=== PATIENT | female | born 1980 | race Caucasian/White ===

== ENCOUNTER 2021-01-02 08:56 | Outpatient (REF) | payer MEDICARE, SELFPAY | END 2021-01-02 08:57 | disposition home or self-care (01) | LOC: HO.LAB 08:56 | PROVIDERS: Visit Provider Internal Medicine | DX: Z20.822 Contact with and (suspected) exposure to COVID-19 (principal) | CPT/HCPCS: 36415; C9803; U0003; U0005 ==

== ENCOUNTER 2021-01-11 11:43 | Outpatient (REF) | payer MEDICARE, SELFPAY | END 2021-01-11 11:44 | disposition home or self-care (01) | LOC: HO.LAB 11:43 | PROVIDERS: PCP Internal Medicine; Visit Provider Internal Medicine | DX: Z20.822 Contact with and (suspected) exposure to COVID-19 (principal) | CPT/HCPCS: 36415; C9803; U0003; U0005 ==

== ENCOUNTER 2021-06-04 18:40 | Emergency (ER) | payer MEDICARE, OTHER, SELFPAY ==
--- NOTE | ~2021-06-04 | XR_ITS ---
EXAMINATION: XR CHEST CLINICAL INFORMATION: Cough. COMPARISON: None TECHNIQUE: Frontal view of the chest was obtained. FINDINGS: No significant abnormality is noted involving the heart, lungs, mediastinum, bony thorax or soft tissues. XR/XR chest 1V IMPRESSION: Unremarkable chest examination.
[2021-06-04 18:58] VITALS: BP 143/74; PULSE 100; RESP 18; TEMP 36.6; O2SAT 97; BMI 39.5
[2021-06-04 19:27] LABS: COVID-19 Test Negative (Negative); IDNOW Serial# 9DD0AD1C
--- NOTE | 2021-06-04 20:32 | ED_ITS ---
HPI - URI/Sore Throat General Chief Complaint: General Medical Stated Complaint: diff inhaling Time Seen by Provider: 06/04/21 20:29 Source: patient Mode of arrival: ambulatory Limitations: no limitations History of Present Illness HPI Narrative: Patient been congested for last 3 -4 days with dry cough and wheezing remote history of asthma has not used inhaler lately no fever no chills no nausea no vomiting diarrhea, patient has right-sided chest pain on coughing no leg swelling patient has not taken COVID-19 vaccine no other family member sick Related Data Previous Rx's Medication Instructions Recorded albuterol sulfate 2.5 mg INHALATION Q4-6H PRN #90 ml 06/04/21 albuterol sulfate [ProAir HFA] 2 puff INHALATION Q6H PRN #8.5 g 06/04/21 codeine-guaifenesin 10 ml PO Q4-6H PRN #237 ml 06/04/21 dicyclomine 20 mg PO QID PRN #30 tab 06/04/21 doxycycline hyclate 100 mg PO BID #20 cap 06/04/21 fluconazole [Diflucan] 150 mg PO ONCE #1 tab 06/04/21 omeprazole 40 mg PO DAILY #30 cap 06/04/21 Allergies Allergy/AdvReac Type Severity Reaction Status Date / Time Latex, Natural Rubber Allergy Hives Verified 06/04/21 20:34 morphine Allergy Angioedema Verified 06/04/21 20:34 Penicillins Allergy Itching Verified 06/04/21 20:34 prednisone AdvReac Swelling Verified 06/04/21 20:34 Review of Systems Review of Systems: Yes all other systems are reviewed and are negative PMFSH Past Medical History Medical History Asthma Surgical History H/O: hysterectomy History of appendectomy History of tonsillectomy Hx of cholecystectomy Social History Social History Advance Directives: No Advance Directives Information Provided: Yes Patient : No Physical Exam Vital Signs: Vital Signs: Last Vital Signs Temp 97.7 F 06/04/21 22:46 Pulse 82 06/04/21 22:46 Resp 17 06/04/21 22:46 BP 105/56 L 06/04/21 22:46 Pulse Ox 98 06/04/21 22:46 Body Mass Index 39.5 Appearance: Alert. Oriented X3. Frequent dry cough Eyes: PERRLA, No Nystagmus ENT: Pharynx normal. Oral Mucosa moist Neck: Normal inspection. Neck supple. CVS: Normal heart rate and rhythm. Pulses normal. Respiratory: No respiratory distress. Equal air entry bilateral, bilateral wheezing/rhonchi no crackles Abdomen: Soft mild epigastric tenderness no mass palpable no rebound tenderness or guarding Skin: Skin warm and dry. Normal skin color. Normal skin turgor. Extremities: No lower extremity edema. No calf tenderness Neuro: Oriented X 3. MDM - URI/Sore Throat MDM Narrative Medical decision making narrative: Patient with bronchitis with history of IBS chronic abdominal pain will discharge patient home on doxycycline cough syrup PPI patient does not want to take prednisone as she gets swelling Lab Data Attestation: I reviewed the patient's lab results. Result diagrams: 06/04/21 20:50 06/04/21 20:50 Labs: Lab Results 06/04/21 06/04/21 06/04/21 Range/Units 19:04 20:50 20:50 WBC 8.5 (4.8-10.8) X10*3/uL RBC 4.38 (4.20-5.50) X10*6/uL Hgb 12.8 (12.0-16.0) g/dl Hct 39.1 (37-47) % MCV 89.3 (80-98) fL MCH 29.2 (27.0-33.0) pg MCHC 32.7 (31.0-35.0) g/dl RDW 13.2 (11.0-16.0) % Plt Count 217 (160-400) X10*3/uL MPV 11.1 (9.4-12.3) fL Immature Gran % (Auto) 0.4 (0.0-0.4) % Neut % (Auto) 58.7 (45-73) % Lymph % (Auto) 28.8 (20-40) % [place] % (Auto) 8.4 (2-11) % Eos % (Auto) 3.1 (0-4) % Baso % (Auto) 0.6 (0-2) % Lymph # (Auto) 2.4 (1.2-4.9) X10*3/uL [place] # (Auto) 0.7 (0.1-1.2) X10*3/uL Eos # (Auto) 0.3 (0.0-0.4) X10*3/uL Baso # (Auto) 0.1 (0.0-0.2) X10*3/uL Abs Immat Gran (auto) 0.03 (0.00-0.03) X10*3/uL Absolute Neuts (auto) 5.0 (2.0-8.3) X10*3/uL Absolute Nucleated RBC 0.000 (0.0-0.012) X10*3/uL Nucleated RBC % (auto) 0.0 (0.0-0.2) /100WBC Sodium 142 (135-145) mmol/L Potassium 4.0 (3.3-5.1) mmol/L Chloride 108 (96-108) mmol/L Carbon Dioxide 27 (22-29) mmol/L Anion Gap 11 L (12-20) BUN 12 (9-16) mg/dL Creatinine 0.83 (0.5-1.4) mg/dL Estim Creat Clear Calc 111.5 Estimated GFR > 60 Random Glucose 99 (60-115) mg/dL Calcium 9.2 (8.4-10.2) mg/dL COVID-19 (VLAD) Negative (Negative) COVID-19 Clin Com See Note Discharge Plan Discharge Clinical Impression: Bronchitis, IBS (irritable colon syndrome) Patient Disposition: Home, Self-Care Instructions: Irritable Bowel Syndrome (ED), Acute Bronchitis (ED) Additional Instructions: Drink plenty of fluids Antibiotic and Medications as prescribed Prescriptions: New codeine-guaifenesin 10-100 mg/5 mL liquid 10 ml PO Q4-6H PRN (Reason: cough) Qty: 237 RF: 0 dicyclomine 20 mg tablet 20 mg PO QID PRN (Reason: abdominal pain) Qty: 30 RF: 0 doxycycline hyclate 100 mg capsule 100 mg PO BID Qty: 20 RF: 0 albuterol sulfate [ProAir HFA] 90 mcg/actuation HFA aerosol inhaler 2 puff inhalation Q6H PRN (Reason: shortness of breath or wheezing) Qty: 8.5 RF: 0 albuterol sulfate 2.5 mg /3 mL (0.083 %) solution for nebulization 2.5 mg inhalation Q4-6H PRN (Reason: shortness of breath or wheezing) Qty: 90 RF: 0 omeprazole 40 mg capsule,delayed release(DR/EC) 40 mg PO DAILY Qty: 30 RF: 0 fluconazole [Diflucan] 150 mg tablet 150 mg PO ONCE Qty: 1 RF: 0 Interventions: ED Discharge Assessment Last Done: 06/04/21 23:18 Discharge Date/Time: 06/04/21 23:22
[2021-06-04 20:36] VITALS: BP 124/72; PULSE 86; RESP 16; O2SAT 98
[2021-06-04] MEDS: Albuterol Sulfate (0.083%) 2.5 MG/3 ML VIAL.NEB 5 MG INHALE (20:44)
[2021-06-04] MEDS: Albuterol/Iprat 2.5/0.5MG 3 ML AMPUL.NEB INHALE (20:44)
[2021-06-04 20:45] VITALS: PULSE 84; O2SAT 97
[2021-06-04 20:56] LABS: MANUAL DIFF FLAG NO
[2021-06-04 20:57] LABS: Basophils Absolute Auto 0.1 X10*3/uL (0.0-0.2); Basophils Percent Auto 0.6 % (0-2); Eosinophils Absolute Auto 0.3 X10*3/uL (0.0-0.4); Eosinophils Percent Auto 3.1 % (0-4); Hematocrit 39.1 % (37-47); Hemoglobin 12.8 g/dl (12.0-16.0); Imm Gran Abs Auto 0.03 X10*3/uL (0.00-0.03); Imm Gran Pct Auto 0.4 % (0.0-0.4); Lymphocytes Absolute Auto 2.4 X10*3/uL (1.2-4.9); Lymphocytes Percent Auto 28.8 % (20-40); Mean Corpuscular HGB Conc 32.7 g/dl (31.0-35.0); Mean Corpuscular Hemoglobin 29.2 pg (27.0-33.0); Mean Corpuscular Volume 89.3 fL (80-98); Mean Platelet Volume 11.1 fL (9.4-12.3); Monocytes Absolute Auto 0.7 X10*3/uL (0.1-1.2); Monocytes Percent Auto 8.4 % (2-11); Neutrophils Percent Auto 58.7 % (45-73); Platelet Count 217 X10*3/uL (160-400); Red Blood Count 4.38 X10*6/uL (4.20-5.50); Red Cell Distribution Width 13.2 % (11.0-16.0); White Blood Count 8.5 X10*3/uL (4.8-10.8)
[2021-06-04 21:17] LABS: Anion Gap 11 (12-20); Blood Urea Nitrogen 12 mg/dL (9-16); Calcium 9.2 mg/dL (8.4-10.2); Carbon Dioxide 27 mmol/L (22-29); Chloride 108 mmol/L (96-108); Creatinine Clr Calc Pharmacy 111.5; Estimated Glomerular Filt Rate > 60; Glucose Random 99 mg/dL (60-115); Sodium 142 mmol/L (135-145)
[2021-06-04 22:26] VITALS: BP 96/61; PULSE 92; RESP 16; O2SAT 99
[2021-06-04 22:46] VITALS: BP 105/56; PULSE 82; RESP 17; TEMP 36.5; O2SAT 98
[2021-06-04] MEDS: Dicyclomine HCl 10 MG CAPSULE 20 MG PO (22:52)
[2021-06-04] MEDS: guaiFEN/Codeine SF 200/20/10ML 10 ML LIQUID PO (22:52)
== END 2021-06-04 23:22 | disposition home or self-care (01) ==
PROVIDERS: Emergency Provider Internal Medicine; PCP Internal Medicine
DX: J40 Bronchitis, not specified as acute or chronic (principal); K58.9 Irritable bowel syndrome, unspecified; J45.909 Unspecified asthma, uncomplicated; Z20.822 Contact with and (suspected) exposure to COVID-19
CPT/HCPCS: 36415; 71045; 80048; 85025; 87635; 94640; 94644; 99284

== ENCOUNTER 2021-11-23 15:11 | Emergency (ER) | payer MEDICARE, OTHER, SELFPAY ==
--- NOTE | ~2021-11-23 | XR_ITS ---
EXAMINATION: XR CHEST CLINICAL INFORMATION: Shortness of breath COMPARISON: Chest x-ray 06/04/2021 TECHNIQUE: 2 views of the chest were obtained. 4:30 PM FINDINGS: No significant abnormality is noted involving the heart, lungs, mediastinum, bony thorax or soft tissues. XR/XR chest 2V IMPRESSION: Unremarkable examination.
[2021-11-23 15:32] VITALS: BP 128/78; PULSE 89; RESP 18; TEMP 36.8; O2SAT 98; BMI 40.3
[2021-11-23 16:22] LABS: IDNOW Serial# 08D9AD1C
[2021-11-23 16:23] LABS: COVID-19 Test Positive (Negative)
[2021-11-23 19:16] VITALS: BP 114/49; PULSE 86; RESP 17; TEMP 37.3; O2SAT 96
--- NOTE | 2021-11-23 19:17 | ED.URI ---
HPI - URI/Sore Throat General Chief Complaint: Upper Respiratory Symptoms Stated Complaint: asthma diff breathing cough Time Seen by Provider: 11/23/21 19:16 Source: patient Mode of arrival: ambulatory Limitations: no limitations History of Present Illness HPI Narrative: 41-year-old female with history of asthma, obesity, GERD who presents to the ER with shortness of breath, fevers, body aches, chills, runny nose for the last 4 days. She is vaccinated for COVID-19 and not due for booster yet. She reports fever 102 last night that did go down with Motrin. She reports she is short of breath with coughing fits mostly at nighttime. She has history of asthma and has been trying to get hold of her doctor for refills of her nebulizer treatments but has been unable to contact them. She denies any chest pain. She is not dyspneic with exertion but very fatigued and weak. MD elicited complaint: fever, cough, nasal congestion and other (Body aches and weakness) Pertinent past history: asthma Onset (ago): day(s) (4) Consistency: progressively worsening Severity: moderate Description of mucous: clear Able to tolerate fluids by mouth: Yes Exacerbating factors: other (Nighttime) Relieving factors: OTC cold medicine Context: sick contacts Associated symptoms: fever, chills, myalgias, diaphoresis, headache, nasal congestion, sore throat, cough and shortness of breath Treatments prior to arrival: none Related Data Previous Rx's Medication Instructions Recorded albuterol sulfate 2.5 mg (3 mL) INHALATION Q4-6H PRN 06/04/21 #90 ml albuterol sulfate 90 mcg/actuation 2 puff INHALATION Q6H PRN #8.5 g 06/04/21 aerosol inhaler (ProAir HFA) codeine 10 mg-guaifenesin 100 mg/5 10 ml PO Q4-6H PRN #237 ml 06/04/21 mL oral liquid dicyclomine 20 mg tablet 20 mg PO QID PRN #30 tab 06/04/21 doxycycline hyclate 100 mg capsule 100 mg PO BID #20 cap 06/04/21 fluconazole 150 mg tablet 150 mg PO ONCE #1 tab 06/04/21 (Diflucan) omeprazole 40 mg capsule,delayed 40 mg PO DAILY #30 cap 06/04/21 release albuterol sulfate 0.63 mg/3 mL 0.63 mg (3 mL) INHALATION QID PRN 11/23/21 solution for nebulization #75 ml benzonatate 100 mg capsule 100 mg PO TID PRN #30 cap 11/23/21 dexamethasone 6 mg tablet 6 mg PO DAILY #5 tab 11/23/21 (Decadron) Allergies Allergy/AdvReac Type Severity Reaction Status Date / Time Latex, Natural Rubber Allergy Hives Verified 11/23/21 15:32 morphine Allergy Angioedema Verified 11/23/21 15:32 Penicillins Allergy Itching Verified 11/23/21 15:32 prednisone AdvReac Swelling Verified 11/23/21 15:32 Review of Systems Review of Systems: Constitutional: + Fever, + Chills ENT/Mouth: No sore throat, + Rhinorrhea, No Swallowing Difficulty Cardiovascular: No Chest Pain, No SOB, No Orthopnea, No Edema Respiratory: No Cough, No Sputum, No Wheezing, No dyspnea Gastrointestinal: No Nausea, No Vomiting, No Diarrhea, No abdominal Pain Musculoskeletal: No joint pain, + Myalgias Skin: No Skin Lesions, No rash Neuro: + Weakness, No Numbness, + Dizziness, + Headache Psych: + Anxiety/Panic, No Depression Heme/Lymph: No Bruising, No Lymphadenopathy PMFSH Past Medical History Medical History Asthma Surgical History H/O: hysterectomy History of appendectomy History of tonsillectomy Hx of cholecystectomy Social History Social History Advance Directives: No Advance Directives Information Provided: Yes Physical Exam Vital Signs: Vital Signs: Last Vital Signs Temp 99.1 F 11/23/21 19:16 Pulse 86 11/23/21 19:16 Resp 17 11/23/21 19:16 BP 114/49 L 11/23/21 19:16 Pulse Ox 96 11/23/21 19:16 BMI result Body Mass Index 40.3 Appearance: Alert. Oriented X3. Appears ill Eyes: Pupils equal, round and reactive to light. ENT: Pharynx normal. Neck: Normal inspection. Neck supple. CVS: Normal heart rate and rhythm. Pulses normal. Respiratory: No respiratory distress. Breath sounds normal. Dry cough with deep breaths Abdomen: Soft and nontender. +BS x4 Skin: Skin warm and dry. Normal skin color. Normal skin turgor. No rashes. Extremities: No lower extremity edema. No calf tenderness or redness Neuro: Oriented X 3. Grossly normal, nonfocal Course Course Course Narrative: 41-year-old female with a history of asthma presents to the ER with COVID symptoms. Her vital signs are normal on arrival. SpO2 96-98% on room air with no respiratory distress. She is afebrile. Chest x-ray shows no evidence of pneumonia. Given her history of asthma will start her on p.o. steroids and give her refills for her albuterol treatments. No wheezing today and no need for neb in the ER. Will also give her antitussive and referral for monoclonal antibodies given her history of asthma and obesity. She is stable for discharge home with close monitoring of her symptoms, encouraged to get an at home SpO2 monitor and return if any worsening respiratory symptoms. Stable for DC home at this time MDM - URI/Sore Throat Lab Data Labs: Lab Results 11/23/21 Range/Units 15:38 COVID-19 (VLAD) Positive A (Negative) COVID-19 Clin Com See Note Discharge Plan Discharge Clinical Impression: COVID-19 Patient Disposition: Home, Self-Care Instructions: Covid-19 Viral Syndrome and Novel Coronavirus (ED) Hey/Ath Additional Instructions: You were found to be COVID-19 POSITIVE today. Your chest x-ray and oxygen levels were normal. Rest. Drink plenty of fluids. Do not go out in public for the next 7 days. Take over the counter cold/flu medications as needed for your symptoms. Take Tylenol and/or Motrin as needed for fevers and body aches. Email the referral for monoclonal antibodies and they will call you for an appointment. Follow up with your doctor this week. If you shortness of breath worsens, if you develop difficulty breathing or any other concerning symptom come back to the ER for further evaluation. Prescriptions: New dexamethasone [Decadron] 6 mg tablet 6 mg PO DAILY Qty: 5 RF: 0 albuterol sulfate 0.63 mg/3 mL solution for nebulization 0.63 mg inhalation QID PRN (Reason: shortness of breath or wheezing) Qty: 75 RF: 0 benzonatate 100 mg capsule 100 mg PO TID PRN (Reason: cough) Qty: 30 RF: 0 No Action codeine-guaifenesin 10-100 mg/5 mL liquid 10 ml PO Q4-6H PRN (Reason: cough) Qty: 237 RF: 0 dicyclomine 20 mg tablet 20 mg PO QID PRN (Reason: abdominal pain) Qty: 30 RF: 0 doxycycline hyclate 100 mg capsule 100 mg PO BID Qty: 20 RF: 0 albuterol sulfate [ProAir HFA] 90 mcg/actuation HFA aerosol inhaler 2 puff inhalation Q6H PRN (Reason: shortness of breath or wheezing) Qty: 8.5 RF: 0 albuterol sulfate 2.5 mg /3 mL (0.083 %) solution for nebulization 2.5 mg inhalation Q4-6H PRN (Reason: shortness of breath or wheezing) Qty: 90 RF: 0 omeprazole 40 mg capsule,delayed release(DR/EC) 40 mg PO DAILY Qty: 30 RF: 0 fluconazole [Diflucan] 150 mg tablet 150 mg PO ONCE Qty: 1 RF: 0
== END 2021-11-23 19:42 | disposition home or self-care (01) ==
PROVIDERS: Emergency Provider Emergency Medicine Emergency Medical Services; PCP Internal Medicine
DX: U07.1 COVID-19 (principal); R06.02 Shortness of breath; J45.909 Unspecified asthma, uncomplicated
CPT/HCPCS: 71046; 87635; 99283; 99284

== ENCOUNTER 2023-04-14 16:41 | Emergency (ER) | payer MEDICARE, MEDICAID, SELFPAY ==
--- NOTE | ~2023-04-14 | XR_ITS ---
EXAMINATION: X-ray right ankle X-ray right foot CLINICAL INFORMATION: Pain, rule out fracture COMPARISON: None TECHNIQUE: Ankle 2 views. Foot 3 views. FINDINGS: Ankle: No visible acute fracture or dislocation. Ankle mortise is maintained. Talar dome appears intact. Fifth metatarsal base appears intact. Foot: No visible acute fracture or dislocation. Alignment is anatomic. Tarsometatarsal alignment is maintained. Anterior calcaneal process and talus appear intact. Small posterior calcaneal spur. XR/XR foot RT min 3V IMPRESSION: No radiographic evidence of acute fracture or dislocation. If there are persistent symptoms, consider follow-up x-rays in 4-7 days.
--- NOTE | ~2023-04-14 | XR_ITS ---
EXAMINATION: X-ray right ankle X-ray right foot CLINICAL INFORMATION: Pain, rule out fracture COMPARISON: None TECHNIQUE: Ankle 2 views. Foot 3 views. FINDINGS: Ankle: No visible acute fracture or dislocation. Ankle mortise is maintained. Talar dome appears intact. Fifth metatarsal base appears intact. Foot: No visible acute fracture or dislocation. Alignment is anatomic. Tarsometatarsal alignment is maintained. Anterior calcaneal process and talus appear intact. Small posterior calcaneal spur. XR/XR ankle RT min 3V IMPRESSION: No radiographic evidence of acute fracture or dislocation. If there are persistent symptoms, consider follow-up x-rays in 4-7 days.
[2023-04-14 17:13] VITALS: BP 143/79; PULSE 98; RESP 18; TEMP 37; O2SAT 96; BMI 39.9
--- NOTE | 2023-04-14 17:21 | ED.LOWEXIN ---
HPI - Extremity Injury (Lower) General Chief Complaint: Extremity Injury, Lower Stated Complaint: right foot pain Time Seen by Provider: 04/14/23 17:10 Source: patient Mode of arrival: ambulatory Limitations: no limitations History of Present Illness HPI Narrative: Patient was in the emergency department complaining of right foot pain following a fall. Patient states that she was walking up stairs carrying luggage when she turned quickly and became dizzy falling over her luggage. She does not believe she hit her head. She denies any other prodromal symptoms such as chest pain or shortness of breath. She now complains of pain only to her right medial foot. Not on blood thinners. She denies any other systemic complaints. Related Data Previous Rx's Medication Instructions Recorded albuterol sulfate 2.5 mg/3 mL 2.5 mg (3 mL) inhalation Q4-6H PRN 06/04/21 (0.083 %) solution for nebulization shortness of breath or wheezing #90 mL albuterol sulfate 90 mcg/actuation 2 puff inhalation Q6H PRN 06/04/21 aerosol inhaler (ProAir HFA) shortness of breath or wheezing #8.5 grams codeine 10 mg-guaifenesin 100 mg/5 10 ml PO Q4-6H PRN cough #237 mL 06/04/21 mL oral liquid dicyclomine 20 mg tablet 20 mg PO QID PRN abdominal pain 06/04/21 #30 tabs doxycycline hyclate 100 mg capsule 100 mg PO BID #20 caps 06/04/21 fluconazole 150 mg tablet 150 mg PO ONCE #1 tab 06/04/21 (Diflucan) omeprazole 40 mg capsule,delayed 40 mg PO DAILY #30 caps 06/04/21 release albuterol sulfate 0.63 mg/3 mL 0.63 mg (3 mL) inhalation QID PRN 11/23/21 solution for nebulization shortness of breath or wheezing #75 mL benzonatate 100 mg capsule 100 mg PO TID PRN cough #30 caps 11/23/21 dexamethasone 6 mg tablet 6 mg PO DAILY #5 tabs 11/23/21 (Decadron) Allergies Allergy/AdvReac Type Severity Reaction Status Date / Time Latex, Natural Rubber Allergy Hives Verified 04/14/23 17:18 morphine Allergy Angioedema Verified 04/14/23 17:18 Penicillins Allergy Itching Verified 04/14/23 17:18 prednisone AdvReac Swelling Verified 04/14/23 17:18 Review of Systems Review of Systems: Yes all other systems are reviewed and are negative [facility] Past Medical History Medical History Asthma Surgical History H/O: hysterectomy History of appendectomy History of tonsillectomy Hx of cholecystectomy Social History Social History Advance Directives: No Advance Directives Information Provided: No Physical Exam Vital Signs: Vital Signs: Last Vital Signs Temp 98.6 F 04/14/23 17:13 Pulse 98 04/14/23 17:13 Resp 18 04/14/23 17:13 BP 143/79 H 04/14/23 17:13 Pulse Ox 96 04/14/23 17:13 O2 Del Method Room Air 04/14/23 17:13 BMI result Body Mass Index 39.9 Patient appears sitting comfortably in the wheelchair. She is obese. Bright foot displays no edema, erythema, ecchymosis or for deformity. There is some tenderness to the medial malleolar/foot area reproduces her pain. She is neurovascularly intact in the extremity. Her ankle and foot are stable. Right knee and hip exam are normal. The pelvis is stable. Chest wall and back display no tenderness or ecchymosis. Abdomen is soft nontender. No midline cervical spine tenderness. No evidence of head trauma. Medications Administered Discontinued Medications Generic Name Dose Route Start Last Admin Trade Name Freq PRN Reason Stop Dose Admin Acetaminophen 975 mg 04/14/23 17:17 04/14/23 17:33 Acetaminophen 325 Mg Tablet PO 04/14/23 17:18 975 mg ONCE ONE Administration Ibuprofen 600 mg 04/14/23 17:17 04/14/23 17:33 Ibuprofen 600 Mg Tablet PO 04/14/23 17:18 600 mg ONCE ONE Administration Medical Decision Making Medical Decision Making MDM Narrative: 42-year-old female presenting following a mechanical fall complaining of right ankle/foot pain. No signs of other traumatic injury. She notes becoming dizzy with turning her head too quickly. Do not suspect ACS or other acute complaints no pulmonary process or intracranial process leading to this fall. Will obtain x-ray and give ibuprofen/Tylenol for pain. Differential Diagnosis Fracture, sprain, traumatic injury, ACS, stroke Independent Interpretation I performed an independent interpretation of an: Plain X-Ray Interpretation: negative xrays Radiology Impression Discussion of test interpretation with radiology: I have reviewed the radiologist's reading. Radiologist Impression: XR/XR foot RT min 3V IMPRESSION: No radiographic evidence of acute fracture or dislocation. If there are persistent symptoms, consider follow-up x-rays in 4-7 days. XR/XR ankle RT min 3V IMPRESSION: No radiographic evidence of acute fracture or dislocation. If there are persistent symptoms, consider follow-up x-rays in 4-7 days. Discharge Plan Discharge Clinical Impression: Foot sprain Patient Disposition: Home, Self-Care Instructions: Foot Sprain (ED), Walking Boot (ED) Additional Instructions: Use the walking boot and crutches as needed for support. It is now evidence of fracture. At this time this is consistent with a foot/ankle sprain. Rest, ice, and elevate. Take ibuprofen 600 mg every 6-8 hours as needed for pain. He may take Tylenol for additional pain relief. If the pain persists after 1-2 weeks he may follow-up with orthopedics for further evaluation. Return for any new or worsening symptoms. Prescriptions: No Action codeine-guaifenesin 10-100 mg/5 mL liquid 10 ml PO Q4-6H PRN (Reason: cough) Qty: 237 0RF dicyclomine 20 mg tablet 20 mg PO QID PRN (Reason: abdominal pain) Qty: 30 0RF doxycycline hyclate 100 mg capsule 100 mg PO BID Qty: 20 0RF albuterol sulfate [ProAir HFA] 90 mcg/actuation HFA aerosol inhaler 2 puff inhalation Q6H PRN (Reason: shortness of breath or wheezing) Qty: 8.5 0RF albuterol sulfate 2.5 mg /3 mL (0.083 %) solution for nebulization 2.5 mg inhalation Q4-6H PRN (Reason: shortness of breath or wheezing) Qty: 90 0RF omeprazole 40 mg capsule,delayed release(DR/EC) 40 mg PO DAILY Qty: 30 0RF fluconazole [Diflucan] 150 mg tablet 150 mg PO ONCE Qty: 1 0RF dexamethasone [Decadron] 6 mg tablet 6 mg PO DAILY Qty: 5 0RF albuterol sulfate 0.63 mg/3 mL solution for nebulization 0.63 mg inhalation QID PRN (Reason: shortness of breath or wheezing) Qty: 75 0RF benzonatate 100 mg capsule 100 mg PO TID PRN (Reason: cough) Qty: 30 0RF Referrals: [facility] [Provider Group]
[2023-04-14] MEDS: Ibuprofen 600 MG TABLET PO (17:33)
[2023-04-14] MEDS: Acetaminophen 325 MG TABLET 975 MG PO (17:33)
--- NOTE | 2023-04-14 18:19 | PC.NURSE ---
air cast boot applied, crutches education provided, pt ambulated safely to waiting room pending ride from family member.
== END 2023-04-14 18:19 | disposition home or self-care (01) ==
PROVIDERS: Emergency Provider Internal Medicine; PCP Internal Medicine
DX: S93.601A Unspecified sprain of right foot, initial encounter (principal); W01.198A Fall on same level from slipping, tripping and stumbling with subsequent striking against other object, initial encounter; Y93.89 Activity, other specified; Y92.038 Other place in apartment as the place of occurrence of the external cause; Y99.9 Unspecified external cause status
CPT/HCPCS: 73610; 73630; 99283

== ENCOUNTER 2023-10-17 13:47 | Emergency (ER) | payer MEDICARE, MEDICAID, SELFPAY ==
--- NOTE | ~2023-10-17 | XR_ITS ---
EXAMINATION: XR FOOT, LEFT CLINICAL INFORMATION: Left foot pain COMPARISON: None available. TECHNIQUE: AP, lateral, and oblique views of the left foot. FINDINGS: There is a small calcaneal heel enthesophyte. Ankle mortise and subtalar joints are normal. There is no visible acute fracture, dislocation or subluxation seen. The soft tissues are normal. XR/XR foot LT 2V IMPRESSION: Small calcaneal heel enthesophyte. Otherwise unremarkable left foot exam
[2023-10-17 14:17] VITALS: BP 154/96; PULSE 83; RESP 20; TEMP 36.2; O2SAT 99; BMI 41.2
--- NOTE | 2023-10-17 14:17 | ED_ITS ---
HPI - General Adult General Chief complaint: Extremity Problem Stated complaint: L Foot Pain No Injury Time Seen by Provider: 10/17/23 14:26 Source: patient Mode of arrival: ambulatory Limitations: no limitations History of Present Illness HPI narrative: This is a 43 year old female hx of obesity, presenting w/ left foot pain reports pain to the bottom of the foot primarily to the arch and the heel ongoing since the summer time. She thinks she could have a cyst. Pain is worse first few steps in the AM. Denies fevers, chills, numbness and tingling. Patient is currently doing PT for lock jaw and they told her to get seen. Related Data Previous Rx's Medication Instructions Recorded albuterol sulfate 2.5 mg/3 mL 2.5 mg (3 mL) inhalation Q4-6H PRN 06/04/21 (0.083 %) solution for nebulization shortness of breath or wheezing #90 mL albuterol sulfate 90 mcg/actuation 2 puff inhalation Q6H PRN 06/04/21 aerosol inhaler (ProAir HFA) shortness of breath or wheezing #8.5 grams codeine 10 mg-guaifenesin 100 mg/5 10 ml PO Q4-6H PRN cough #237 mL 06/04/21 mL oral liquid dicyclomine 20 mg tablet 20 mg PO QID PRN abdominal pain 06/04/21 #30 tabs doxycycline hyclate 100 mg capsule 100 mg PO BID #20 caps 06/04/21 fluconazole 150 mg tablet 150 mg PO ONCE #1 tab 06/04/21 (Diflucan) omeprazole 40 mg capsule,delayed 40 mg PO DAILY #30 caps 06/04/21 release albuterol sulfate 0.63 mg/3 mL 0.63 mg (3 mL) inhalation QID PRN 11/23/21 solution for nebulization shortness of breath or wheezing #75 mL benzonatate 100 mg capsule 100 mg PO TID PRN cough #30 caps 11/23/21 dexamethasone 6 mg tablet 6 mg PO DAILY #5 tabs 11/23/21 (Decadron) ketorolac 10 mg tablet 10 mg PO TID PRN pain 5 days #15 10/17/23 tabs Allergies Allergy/AdvReac Type Severity Reaction Status Date / Time Latex, Natural Rubber Allergy Hives Verified 04/14/23 17:18 morphine Allergy Angioedema Verified 04/14/23 17:18 Penicillins Allergy Itching Verified 04/14/23 17:18 prednisone AdvReac Swelling Verified 04/14/23 17:18 Review of Systems Review of Systems: Constitutional : No Weight loss, No Fever, No Chills, No Fatigue, No Malaise ENT/Mouth : No sore throat, No Rhinorrhea Eyes: No Eye Pain, No Swelling, No Redness Cardiovascular : No Chest Pain, No SOB, No Dyspnea on Exertion, No Orthopnea, No Edema, No Palpitations Respiratory : No Cough, No Sputum, No Wheezing Gastrointestinal : No Nausea, No Vomiting, No Diarrhea, No Constipation, No abdominal Pain, No Hematochezia, No Melena Genitourinary : No Dysuria, No Urinary Frequency, No Hematuria, Musculoskeletal : No joint pain, No Myalgias, No Joint Swelling, + foot pain Skin : No Skin Lesions, No rash Neuro : No Weakness, No Numbness, No Dizziness, No Headache Psych : No Anxiety/Panic, No Depression All other systems reviewed and are negative Yes all other systems are reviewed and are negative [facility] Past Medical History Attestation statement: The following information was validated with the patient. Source: old records reviewed and nursing notes reviewed Medical History Asthma Surgical History History of tonsillectomy H/O: hysterectomy Hx of cholecystectomy History of appendectomy Social History Social History Advance Directives: No Physical Exam ED Vital Signs: Vital Signs - 24 hr 10/17/23 14:17 Temperature 97.1 F Pulse Rate 83 Respiratory Rate 20 Blood Pressure 154/96 H Pulse Oximetry 99 Oxygen Delivery Method Room Air BMI result Body Mass Index 41.2 vss Appearance: Alert.? Oriented X3.? No acute distress.? Head: Normocephalic, atraumatic, no step-offs or deformities Eyes: Pupils equal, round and reactive to light.? CVS: Normal heart rate and rhythm.? Pulses normal.? Respiratory: No respiratory distress.? Breath sounds normal.? Abdomen: Soft and nontender.? Skin: Skin warm and dry.? Normal skin color.? Normal skin turgor.? Extremities: No lower extremity edema.? No calf ttp. 5/5 strength to bilateral upper and lower extremities + TTP to bottom of left foot over plantar facia and heel. 2+ DP,AT,PT pulses equal and b/l. No foot drop b/l. Normal sensation distally. Neuro: Oriented X 3.? No motor deficit.? No sensory deficit. CN 2-12 intact Course Reevaluation(s) Reevaluation #1: X-ray ordered and pending. Patient to be discharged home with Toradol and orthopedic follow-up. Educated patient on diagnosis and treatment plan, answered all question, patient verbalizes understanding. At this time patient will be discharged home, advised to return with new or worsening symptoms. Educated on worrisome signs and symptoms and when to return. At this time I feel comfortable discharge home. Time: 14:23 Medications Administered Discontinued Medications Generic Name Dose Route Start Last Admin Trade Name Freq PRN Reason Stop Dose Admin Ketorolac Tromethamine 30 mg 10/17/23 14:23 10/17/23 14:35 Ketorolac Tromethamine 15 Mg/Ml Vial IM 10/17/23 14:24 30 mg ONCE ONE Administration Medical Decision Making Medical Decision Making [facility] Narrative: [birth year] 43 yo f presents w/ left foot pain to arch of foot since the summer. No trauma PE No lower extremity edema.? No calf ttp. 5/5 strength to bilateral upper and lower extremities + TTP to bottom of left foot over plantar facia and heel. 2+ DP,AT,PT pulses equal and b/l. No foot drop b/l. Normal sensation distally. Likely plantar fascititis vs sprain/ strain vs tendinitis . Unlikley fx/dislocaiton, nv compromise, threat to limb. Plan xray and dc from waiting room Differential Diagnosis Differential Diagnoses: The differential diagnosis associated with the presentation includes Likely plantar fascititis vs sprain/ strain vs tendinitis . Unlikley fx/dislocaiton, nv compromise, threat to limb. Admission/Observation Consideration of admission/observation: Escalation of care including admission/observation considered Independent Interpretation I performed an independent interpretation of an: Plain X-Ray Radiology Impression Discussion of test interpretation with radiology: I have reviewed the radiologist's reading. Prescription Management I considered prescription management with: Pain Medication Critical Care Time Critical Care Time Critical Care Time: No Discharge Plan Discharge Clinical Impression: Plantar fasciitis Patient Disposition: Home, Self-Care Instructions: Plantar Fasciitis (ED), Plantar Fasciitis Exercises (ED) Additional Instructions: Take your medications as prescribed. If you were prescribed antibiotics today, it is important that you take your medication to their entirety, do not skip any doses, do not finish them early. Follow-up with your primary care provider this week. Follow-up with the orthopedic team if needed. Return to the emergency department with new or worsening symptoms. Such as fevers, chills, numbness, tingling, overlying skin changes. In case of emergency call 911 Toradol has been sent to your pharmacy, you tolerated this well in the department. Please take this as prescribed do not take this with ibuprofen, or other NSAIDs, do not mix this with alcohol. Side effects of this medication including increased risk for bleeding and possible kidney injury. Prescriptions: New ketorolac 10 mg tablet 10 mg PO TID PRN (Reason: pain) 5 Days Qty: 15 0RF No Action codeine-guaifenesin 10-100 mg/5 mL liquid 10 ml PO Q4-6H PRN (Reason: cough) Qty: 237 0RF dicyclomine 20 mg tablet 20 mg PO QID PRN (Reason: abdominal pain) Qty: 30 0RF doxycycline hyclate 100 mg capsule 100 mg PO BID Qty: 20 0RF albuterol sulfate [ProAir HFA] 90 mcg/actuation HFA aerosol inhaler 2 puff inhalation Q6H PRN (Reason: shortness of breath or wheezing) Qty: 8.5 0RF albuterol sulfate 2.5 mg /3 mL (0.083 %) solution for nebulization 2.5 mg inhalation Q4-6H PRN (Reason: shortness of breath or wheezing) Qty: 90 0RF omeprazole 40 mg capsule,delayed release(DR/EC) 40 mg PO DAILY Qty: 30 0RF fluconazole [Diflucan] 150 mg tablet 150 mg PO ONCE Qty: 1 0RF dexamethasone [Decadron] 6 mg tablet 6 mg PO DAILY Qty: 5 0RF albuterol sulfate 0.63 mg/3 mL solution for nebulization 0.63 mg inhalation QID PRN (Reason: shortness of breath or wheezing) Qty: 75 0RF benzonatate 100 mg capsule 100 mg PO TID PRN (Reason: cough) Qty: 30 0RF Referrals: [facility] [place] [facility] [Provider Group] - 2 days Stand Alone Forms: Work/School Release Interventions: ED Discharge Assessment Last Done: 10/17/23 16:05 Discharge Date/Time: 10/17/23 16:05
[2023-10-17] MEDS: Ketorolac Tromethamine 15 MG/ML VIAL 30 MG IM (14:35)
--- NOTE | 2023-10-17 14:36 | PC.NURSE ---
per request of triage provider, pt was medicated with IM toradol and awaites an xray in the [facility] across from triage.
== END 2023-10-17 16:05 | disposition home or self-care (01) ==
PROVIDERS: Emergency Provider Emergency Medicine; PCP Internal Medicine
DX: M72.2 Plantar fascial fibromatosis (principal); M79.672 Pain in left foot
CPT/HCPCS: 73620; 96372; 99283; 99284; J1885

== ENCOUNTER 2024-02-01 19:36 | Emergency (ER) | payer OTHER, SELFPAY ==
--- NOTE | ~2024-02-01 | XR_ITS ---
EXAMINATION: XR CHEST CLINICAL INFORMATION: Cough. COMPARISON: Chest radiograph 11/23/2021. TECHNIQUE: Frontal view of the chest was obtained. FINDINGS: Normal appearance of the cardiomediastinal silhouette. No focal airspace opacities, pleural effusion or pneumothorax. No evidence of pulmonary edema. No acute osseous findings. Visualized upper abdomen is within normal limits. XR/XR chest 1V IMPRESSION: No acute cardiopulmonary findings.
[2024-02-01 19:58] VITALS: BP 135/73; PULSE 110; RESP 20; TEMP 38.2; O2SAT 95; BMI 41.7
--- NOTE | 2024-02-01 19:58 | ED.GENADULT ---
HPI - General Adult General Chief complaint: Fever Stated complaint: fever, cough, body aches, heavy chest Time Seen by Provider: 02/01/24 23:32 Source: patient Mode of arrival: ambulatory Limitations: no limitations History of Present Illness HPI narrative: patient comes to the emergency room complaining of 3 days flu-like symptoms, body aches, fever and cough. Patient denies chest pain or shortness of breath. Patient states that she does have history of asthma but it has not been acting up. Patient states that since she was diagnosed with COVID, patient has had multiple issues with her lungs but they are running at baseline. Related Data Previous Rx's Medication Instructions Recorded albuterol sulfate 2.5 mg/3 mL 2.5 mg (3 mL) inhalation Q4-6H PRN 06/04/21 (0.083 %) solution for nebulization shortness of breath or wheezing #90 mL albuterol sulfate 90 mcg/actuation 2 puff inhalation Q6H PRN 06/04/21 aerosol inhaler (ProAir HFA) shortness of breath or wheezing #8.5 grams codeine 10 mg-guaifenesin 100 mg/5 10 ml PO Q4-6H PRN cough #237 mL 06/04/21 mL oral liquid dicyclomine 20 mg tablet 20 mg PO QID PRN abdominal pain 06/04/21 #30 tabs doxycycline hyclate 100 mg capsule 100 mg PO BID #20 caps 06/04/21 fluconazole 150 mg tablet 150 mg PO ONCE #1 tab 06/04/21 (Diflucan) omeprazole 40 mg capsule,delayed 40 mg PO DAILY #30 caps 06/04/21 release albuterol sulfate 0.63 mg/3 mL 0.63 mg (3 mL) inhalation QID PRN 11/23/21 solution for nebulization shortness of breath or wheezing #75 mL benzonatate 100 mg capsule 100 mg PO TID PRN cough #30 caps 11/23/21 dexamethasone 6 mg tablet 6 mg PO DAILY #5 tabs 11/23/21 (Decadron) ketorolac 10 mg tablet 10 mg PO TID PRN pain 5 days #15 10/17/23 tabs Allergies Allergy/AdvReac Type Severity Reaction Status Date / Time Latex, Natural Rubber Allergy Hives Verified 04/14/23 17:18 morphine Allergy Angioedema Verified 04/14/23 17:18 Penicillins Allergy Itching Verified 04/14/23 17:18 prednisone AdvReac Swelling Verified 04/14/23 17:18 Review of Systems Review of Systems: Constitutional : No Weight loss, Complaining of fever chills, malaise, fatigue ENT/Mouth : No Hearing loss, No Ear Pain, No Nasal Congestion, No Sinus Pain, No Hoarseness, No sore throat, No Rhinorrhea, No Swallowing Difficulty Eyes: No Eye Pain, No Swelling, No Redness, No Foreign Body, No Discharge, No Vision Changes Cardiovascular : No Chest Pain, No SOB, No Dyspnea on Exertion, No Orthopnea, No Edema, No Palpitations Respiratory : complaining of cough, intermittent wheezing, no significant shortness of breath Gastrointestinal : No Nausea, No Vomiting, No Diarrhea, No Constipation, No abdominal Pain, No Hematochezia, No Melena Genitourinary : no irregular bleeding, No Dysuria, No Urinary Frequency, No Hematuria, No Urinary Incontinence, No Urgency, No Flank Pain, No Urinary Flow Changes, No Hesitancy Musculoskeletal : No joint pain, No Myalgias, No Joint Swelling Skin : No Skin Lesions, No rash Neuro : No Weakness, No Numbness, No Paresthesias, No Loss of Consciousness, No Dizziness, No Headache Psych : No Anxiety/Panic, No Depression, No SI/HI/AH/VH, No Social Issues, Heme/Lymph: No Bruising, No Bleeding,No Lymphadenopathy Endocrine : No Polyuria, No Polydipsia, No Temperature Intolerance PMFSH Past Medical History Medical History Asthma Surgical History History of tonsillectomy H/O: hysterectomy Hx of cholecystectomy History of appendectomy Social History Social History Alcohol intake: never Smoked in Last 30 Days: No Use of substances other than those prescribed or required for medical reasons: No Advance Directives: No Advance Directives Information Provided: No Physical Exam ED Vital Signs: Vital Signs - 24 hr 02/01/24 19:58 02/01/24 23:40 02/02/24 01:40 Temperature 100.7 F H 99.1 F 98.4 F Pulse Rate 110 H 97 84 Respiratory Rate 20 20 16 Blood Pressure 135/73 119/65 130/79 Pulse Oximetry 95 97 95 Oxygen Delivery Method Room Air Room Air Room Air BMI result Body Mass Index 41.7 Const Other: Appearance: Alert. Oriented X3. No acute distress. Eyes: Pupils equal, round and reactive to light. ENT: Pharynx normal. Neck: Normal inspection. Neck supple. No lymph nodes noted. No crepitus CVS: Normal heart rate and rhythm. Pulses normal. Normal S1 and S2 Respiratory: No respiratory distress. Breath sounds normal. No Wheezing. No rales Abdomen: Soft and nontender. No rigidity. No distention. Skin: Skin warm and dry. Normal skin color. Normal skin turgor. Extremities: No lower extremity edema. No Lacerations. No Rash Neuro: Oriented X 3. No motor deficit. No sensory deficit. Moving all extremities. No slurred speech. CN 2 through 12 grossly intact Psych: calm, cooperative, normal affect Course Course Course Narrative: This is an RME: Additional HPI, ROS, PE not included below will be deferred to primary provider. 43 yo f presents w/ fever t max 103.9, cough, fatigue, malaise, diarrhea, muscle aches X 3 days worsening. Sick contacts at home. Plan- viral test, cxr Medications Administered Discontinued Medications Generic Name Dose Route Start Last Admin Trade Name Tavoq PRN Reason Stop Dose Admin Acetaminophen 650 mg 02/01/24 20:06 02/02/24 01:08 Acetaminophen 325 Mg Tablet PO 02/01/24 20:07 650 mg ONCE ONE Administration Medical Decision Making Medical Decision Making [facility] Narrative: - my interpretation of labs: Positive for influenza - my interpretation of chest x-ray: No obvious infiltrate, pneumonia not suspected. - I discussed with the patient that it is borderline whether Tamiflu will help alleviate her symptoms. Patient states that she prefers to not take Tamiflu and treat her symptoms at home with Tylenol and Motrin. Lab Data [facility] Lab Attestation statement: I reviewed the patient's lab results. Labs: Lab Results 02/01/24 Range/Units 20:08 Influenza Type A (PCR) NEGATIVE (Negative) Influenza Type B (PCR) POSITIVE A (Negative) RSV RNA Qual (PCR) NEGATIVE (Negative) SARS-CoV-2 RNA (RT-PCR) NEGATIVE (Negative) Independent Interpretation I performed an independent interpretation of an: Plain X-Ray Radiology Impression Discussion of test interpretation with radiology: I have reviewed the radiologist's reading. Radiologist Impression: Normal appearance of the cardiomediastinal silhouette. No focal airspace opacities, pleural effusion or pneumothorax. No evidence of pulmonary edema. No acute osseous findings. Visualized upper abdomen is within normal limits. XR/XR chest 1V IMPRESSION: No acute cardiopulmonary findings. Discharge Plan Discharge Clinical Impression: Influenza Patient Disposition: Home, Self-Care Instructions: Influenza (ED) Additional Instructions: Please follow-up with your primary care physician tomorrow. If you have any worsening or new symptoms, please return to the emergency room or call 911 Prescriptions: No Action codeine-guaifenesin 10-100 mg/5 mL liquid 10 ml PO Q4-6H PRN (Reason: cough) Qty: 237 0RF dicyclomine 20 mg tablet 20 mg PO QID PRN (Reason: abdominal pain) Qty: 30 0RF doxycycline hyclate 100 mg capsule 100 mg PO BID Qty: 20 0RF albuterol sulfate [ProAir HFA] 90 mcg/actuation HFA aerosol inhaler 2 puff inhalation Q6H PRN (Reason: shortness of breath or wheezing) Qty: 8.5 0RF albuterol sulfate 2.5 mg /3 mL (0.083 %) solution for nebulization 2.5 mg inhalation Q4-6H PRN (Reason: shortness of breath or wheezing) Qty: 90 0RF omeprazole 40 mg capsule,delayed release(DR/EC) 40 mg PO DAILY Qty: 30 0RF fluconazole [Diflucan] 150 mg tablet 150 mg PO ONCE Qty: 1 0RF dexamethasone [Decadron] 6 mg tablet 6 mg PO DAILY Qty: 5 0RF albuterol sulfate 0.63 mg/3 mL solution for nebulization 0.63 mg inhalation QID PRN (Reason: shortness of breath or wheezing) Qty: 75 0RF benzonatate 100 mg capsule 100 mg PO TID PRN (Reason: cough) Qty: 30 0RF ketorolac 10 mg tablet 10 mg PO TID PRN (Reason: pain) 5 Days Qty: 15 0RF
--- NOTE | 2024-02-01 20:09 | MHC.EDTECH ---
Sars/Fle/Rsv obtained and sent to lab.
[2024-02-01 20:54] LABS: Influenza A PCR NEGATIVE (Negative); Influenza B PCR POSITIVE (Negative); Resp Syncy Virus RNA Qual PCR NEGATIVE (Negative); SARS COV2 PCR INHOUSE NEGATIVE (Negative)
[2024-02-01 23:40] VITALS: BP 119/65; PULSE 97; RESP 20; TEMP 37.3; O2SAT 97
[2024-02-02] MEDS: Acetaminophen 325 MG TABLET 650 MG PO (01:08)
[2024-02-02 01:40] VITALS: BP 130/79; PULSE 84; RESP 16; TEMP 36.9; O2SAT 95
[2024-02-02 02:06] VITALS: BP 130/79; PULSE 84; RESP 16; TEMP 36.9; O2SAT 95
== END 2024-02-02 02:08 | disposition home or self-care (01) ==
PROVIDERS: Physician Assistant; Emergency Provider Emergency Medicine; PCP Internal Medicine
DX: J10.1 Influenza due to other identified influenza virus with other respiratory manifestations (principal); R50.9 Fever, unspecified; R05.9 Cough, unspecified; R07.89 Other chest pain; M79.10 Myalgia, unspecified site; Z11.52 Encounter for screening for COVID-19; Z20.822 Contact with and (suspected) exposure to COVID-19
CPT/HCPCS: 0241U; 71045; 99283; 99284

== ENCOUNTER 2024-06-03 15:20 | Emergency (ER) | payer OTHER, SELFPAY ==
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
[2024-06-03 15:53] VITALS: BP 125/85; BP 128/85; PULSE 78; PULSE 81; RESP 16; TEMP 36.5; O2SAT 94; O2SAT 95; BMI 30.4
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
[2024-06-03 17:30] LABS: Appearance Urine Clear; Color Urine Yellow; Glucose Urine UA Negative (Negative); Leukocyte Esterase Urine Negative (Negative); Nitrite Urine Negative (Negative); PH 6.5 (5.0-9.0); Specific Gravity - Urine <= 1.005 (1.005-1.025); Urine Blood Negative (Negative); Urine Ketones Negative (Negative); Urine Protein Negative (Neg-Trace)
[2024-06-03 18:18] VITALS: BP 110/64; PULSE 75; RESP 14; O2SAT 98
[2024-06-03] MEDS: oxyCODONE HCl Immed Release 5 MG TABLET PO (18:30)
[2024-06-03] MEDS: Ondansetron ODT 4 MG TAB.RAPDIS TRANSLINGU (18:30)
[2024-06-03 20:54] VITALS: BP 117/84; PULSE 76; RESP 18; TEMP 36.6; O2SAT 98
== END 2024-06-03 20:58 | disposition home or self-care (01) ==
PROVIDERS: Nurse Practitioner Family; Emergency Provider Emergency Medicine; PCP Internal Medicine
DX: S20.211A Contusion of right front wall of thorax, initial encounter (principal); S50.01XA Contusion of right elbow, initial encounter; R10.2 Pelvic and perineal pain; M25.521 Pain in right elbow; R51.9 Headache, unspecified; M54.2 Cervicalgia; R07.89 Other chest pain; V43.62XA Car passenger injured in collision with other type car in traffic accident, initial encounter; Y93.89 Activity, other specified; Y92.488 Other paved roadways as the place of occurrence of the external cause; Y99.8 Other external cause status
CPT/HCPCS: 70450; 71250; 72125; 73070; 74176; 81003; 99284